=== PATIENT | male | born 1995 | race Caucasian/White ===

== ENCOUNTER 2017-05-20 13:48 | Emergency (ER) | payer OTHER, SELFPAY ==
[~2017-05-20] VITALS: Ht 182.9 cm; Wt 100.0 kg
[2017-05-20 13:49] VITALS: BP 145/80
[2017-05-20] MEDS ORDERED: LIDO1SOL7 MT (14:11)
[2017-05-20] MEDS ORDERED: PERC5TAB12 PO (15:13)
[2017-05-20] MEDS ORDERED: PENI500T PO (15:14)
[2017-05-20] MEDS ORDERED: PENICILLIN V POTASSIUM 500 MG TAB PO ONE (15:15)
[2017-05-20] MEDS ORDERED: PERCOCET 5MG/325MG TAB PO ONE (15:15)
== END 2017-05-20 15:29 | disposition home or self-care (01) ==
LOC: M ED 13:48
DX: K02.9 Dental caries, unspecified (principal); F17.200 Nicotine dependence, unspecified, uncomplicated; Z88.2 Allergy status to sulfonamides

== ENCOUNTER 2017-07-07 03:13 | Emergency (ER) | payer OTHER, SELFPAY ==
[~2017-07-07] VITALS: Ht 182.9 cm; Wt 100.0 kg
[~2017-07-07 03:13] MED LIST: LIDO1SOL7 MT; PENI500T PO; PERC5TAB12 PO
[2017-07-07 03:16] VITALS: BP 175/93
[2017-07-07] MEDS ORDERED: IBUP-1022 PO (06:24)
[2017-07-07] MEDS ORDERED: PERC5TAB12 PO (06:24)
[2017-07-07] MEDS ORDERED: CLEO300C2 PO (06:24)
[2017-07-07] MEDS ORDERED: ONDANSETRON 4 MG ORAL DISINTEGRATING TAB (S0181) PO ONE (06:30)
[2017-07-07] MEDS ORDERED: PERCOCET 5MG/325MG TAB PO ONE (06:30)
== END 2017-07-07 06:54 | disposition home or self-care (01) ==
LOC: M ED 03:13
DX: S02.5XXA Fracture of tooth (traumatic), initial encounter for closed fracture (principal); X58.XXXA Exposure to other specified factors, initial encounter; Y92.9 Unspecified place or not applicable; Y93.9 Activity, unspecified; Y99.9 Unspecified external cause status; K02.9 Dental caries, unspecified; K08.89 Other specified disorders of teeth and supporting structures; Z88.2 Allergy status to sulfonamides

== ENCOUNTER 2017-08-18 08:07 | Emergency (ER) | payer MEDICAID, SELFPAY ==
[~2017-08-18] VITALS: Ht 182.9 cm; Wt 104.5 kg
[~2017-08-18 08:07] MED LIST changes: +CLEO300C2 PO; +IBUP-1022 PO
[2017-08-18 08:08] VITALS: BP 136/76
[2017-08-18] MEDS ORDERED: VENTAER IN (08:17)
[2017-08-18] MEDS ORDERED: PRED10TA2 PO (09:19)
[2017-08-18] MEDS ORDERED: ALBU83IN INH (09:19)
[2017-08-18] MEDS ORDERED: IBUPROFEN 800 MG TAB PO ONE (09:30)
[2017-08-18] MEDS ORDERED: predniSONE 20 MG TAB PO ONE (09:30)
== END 2017-08-18 09:28 | disposition home or self-care (01) ==
LOC: M ED 08:07
DX: J45.901 Unspecified asthma with (acute) exacerbation (principal); J06.9 Acute upper respiratory infection, unspecified; F17.200 Nicotine dependence, unspecified, uncomplicated; Z88.2 Allergy status to sulfonamides

== ENCOUNTER 2017-08-30 15:50 | Emergency (ER) | payer MEDICAID, SELFPAY ==
[~2017-08-30] VITALS: Ht 182.9 cm; Wt 109.9 kg
[2017-08-30 15:50] VITALS: BP 140/78
[~2017-08-30 15:50] MED LIST changes: +ALBU83IN INH; +PRED10TA2 PO; +VENTAER IN
[2017-08-30] MEDS ORDERED: CLEO300C2 PO (17:19)
[2017-08-30] MEDS ORDERED: IBUP-1022 PO (17:19)
[2017-08-30] MEDS ORDERED: PERC5TAB12 PO (17:19)
== END 2017-08-30 17:26 | disposition home or self-care (01) ==
LOC: M ED 15:50
DX: K04.7 Periapical abscess without sinus (principal); K02.9 Dental caries, unspecified; K08.89 Other specified disorders of teeth and supporting structures; J45.909 Unspecified asthma, uncomplicated; Z88.2 Allergy status to sulfonamides

== ENCOUNTER 2017-09-15 07:35 | Emergency (ER) | payer MEDICAID ==
[2017-09-15] MEDS: IBUPROFEN 600 MG TAB PO (08:05)
== END 2017-09-15 08:07 | disposition home or self-care (01) ==
LOC: M ED 07:35
DX: K02.9 Dental caries, unspecified (principal); K08.89 Other specified disorders of teeth and supporting structures
CPT/HCPCS: 99282

== ENCOUNTER 2021-03-14 20:07 | Emergency (ER) | payer MEDICAID, OTHER ==
[~2021-03-14] VITALS: Ht 180.3 cm; Wt 107.9 kg
[~2021-03-14 20:07] MED LIST changes: -LIDO1SOL7 MT; +LIDO2SOL17 MT
[2021-03-14] MEDS ORDERED: DERMABOND TOPICAL SKIN ADHESIVE TOP ONE (21:45)
[2021-03-14] MEDS ORDERED: CEPH500C PO (21:49)
[2021-03-14] MEDS ORDERED: BOOSTRIX/ADACEL VACCINE (DIPHTH/PERTUSS/ACELL/TETANUS) 0.5ML SYR IM ONE (21:50)
[2021-03-14 22:06] VITALS: BP 121/67
== END 2021-03-14 22:15 | disposition home or self-care (01) ==
LOC: M ED 20:07
DX: S61.210A Laceration without foreign body of right index finger without damage to nail, initial encounter (principal); W26.0XXA Contact with knife, initial encounter; Y92.89 Other specified places as the place of occurrence of the external cause; Y93.G1 Activity, food preparation and clean up; Y99.0 Civilian activity done for income or pay; J45.909 Unspecified asthma, uncomplicated; F17.200 Nicotine dependence, unspecified, uncomplicated; Z88.2 Allergy status to sulfonamides

== ENCOUNTER 2021-09-08 10:21 | Emergency (ER) | payer OTHER, SELFPAY ==
[~2021-09-08] VITALS: Ht 182.9 cm; Wt 104.5 kg
[~2021-09-08 10:21] MED LIST changes: +CEPH500C PO
[2021-09-08 10:36] VITALS: BP 155/82
[2021-09-08] MEDS ORDERED: KETOROLAC 30 MG/ML 1ML VIAL IM ONE (11:50)
[2021-09-08 12:59] LABS: RSV AMPLIFICATION NEGATIVE (NEGATIVE)
== END 2021-09-08 14:06 | disposition home or self-care (01) ==
LOC: M ED 10:21
DX: U07.1 COVID-19 (principal); J45.909 Unspecified asthma, uncomplicated; Z88.2 Allergy status to sulfonamides
CPT/HCPCS: 87631; 96372; 99282; J1885

== ENCOUNTER 2021-11-10 09:39 | Emergency (ER) | payer OTHER, SELFPAY ==
[~2021-11-10] VITALS: Ht 182.9 cm; Wt 102.3 kg
[2021-11-10 11:19] VITALS: BP 148/81
== END 2021-11-10 11:23 | disposition home or self-care (01) ==
LOC: M ED 09:39
DX: S63.502A Unspecified sprain of left wrist, initial encounter (principal); W01.0XXA Fall on same level from slipping, tripping and stumbling without subsequent striking against object, initial encounter; F17.200 Nicotine dependence, unspecified, uncomplicated; Y92.009 Unspecified place in unspecified non-institutional (private) residence as the place of occurrence of the external cause; Y93.9 Activity, unspecified; Y99.9 Unspecified external cause status

== ENCOUNTER 2024-04-03 09:27 | Emergency (ER) | payer SELFPAY ==
[~2024-04-03] VITALS: Ht 180.3 cm; Wt 118.8 kg
[~2024-04-03 09:27] MED LIST changes: +ALBU2.5V10 INH; -ALBU83IN INH; +LIDO15SO8 MT; -LIDO2SOL17 MT
[2024-04-03] MEDS ORDERED: IBUP-1857 PO (09:41)
[2024-04-03 11:18] LABS: BASO % 0.7 % (0.0-1.0); EOS # 0.2 10^3/uL (0.0-0.5); EOS % 3.3 % (0.0-3.0); HEMATOCRIT 45.3 % (42.0-52.0); HEMOGLOBIN 15.4 g/dl (13.5-17.5); LYMPH # 1.8 10^3/uL (1.5-5.0); LYMPH % 29.3 % (24.0-44.0); MEAN CORPUSCULAR HEMOGLOBIN 29.6 pg (27.0-33.0); MEAN CORPUSCULAR VOLUME 87.1 fl (80.0-96.0); MONO # 0.4 10^3/uL (0.0-0.8); MONO % 6.8 % (2.0-8.0); NEUTROPHILS # 3.7 10^3/uL (1.5-8.5); NEUTROPHILS % 59.9 % (36.0-66.0); PLATELET COUNT, AUTOMATED 233 10^3/uL (150-450); WHITE BLOOD COUNT 6.2 10^3/uL (4.0-10.0)
[2024-04-03 11:34] LABS: INR 0.99; PROTHROMBIN TIME 12.8 SECONDS (12.5-14.5)
[2024-04-03 11:41] LABS: CK-MB VALUE MASS 2.5 NG/ML (<3.6); LIPASE 31 U/L (12-53)
[2024-04-03 11:43] LABS: ALBUMIN 4.1 G/DL (3.2-5.2); ALKALINE PHOSPHATASE 67 U/L (46-116); ALT/SGPT 25 U/L (7.0-40); AST/SGOT 15 U/L (<34); BILIRUBIN,DIRECT 0.1 MG/DL (<0.4); BILIRUBIN,TOTAL 0.5 MG/DL (0.3-1.2); BLOOD UREA NITROGEN 13 MG/DL (9-23); CALCIUM LEVEL 9.7 MG/DL (8.5-10.1); CARBON DIOXIDE LEVEL 28 MMOL/L (20-31); CHLORIDE LEVEL 107 MMOL/L (98-107); CPK CREATINE PHOSPHOKINASE 277 U/L (46-171); CREATININE FOR GFR 0.97 MG/DL (0.70-1.30); GLOMERULAR FILTRATION RATE > 60.0 (>60); GLUCOSE, FASTING 106 MG/DL (60-100); SODIUM LEVEL 139 MMOL/L (136-145); TOTAL PROTEIN 7.2 G/DL (5.7-8.2)
[2024-04-03 11:45] LABS: THYROID STIMULATING HORMONE 1.957 uIU/ML (0.55-4.78)
[2024-04-03] MEDS ORDERED: ISOVUE-370 76% 100ML VIAL As Ordered ONE (12:04)
[2024-04-03 12:32] LABS: AMPHETAMINES LEVEL URINE NEGATIVE (NEGATIVE); BARBITURATES URINE NEGATIVE (NEGATIVE); BENZODIAZEPINES URINE NEGATIVE (NEGATIVE); COCAINE METABOLITE URINE NEGATIVE (NEGATIVE); METHADONE URINE NEGATIVE (NEGATIVE); PHENCYCLIDINE URINE NEGATIVE (NEGATIVE)
[2024-04-03 12:33] LABS: CANNABINOIDS URINE POSITIVE (NEGATIVE); OPIATES URINE POSITIVE (NEGATIVE)
[2024-04-03 14:00] VITALS: BP 132/78
[2024-04-03 14:02] VITALS: TEMP 97.8; O2SAT 99
== END 2024-04-03 14:20 | disposition home or self-care (01) ==
LOC: M ED 09:27
DX: R07.9 Chest pain, unspecified (principal); R00.0 Tachycardia, unspecified; I45.81 Long QT syndrome; F17.210 Nicotine dependence, cigarettes, uncomplicated; Z88.2 Allergy status to sulfonamides; Z79.1 Long term (current) use of non-steroidal anti-inflammatories (NSAID)
CPT/HCPCS: 36415; 71045; 71275; 80048; 80076; 80307; 82550; 82553; 83690; 84443; 84484; 85025; 85610; 93005; 93041; 94760; 99285; Q9967

== ENCOUNTER 2025-01-02 19:28 | Emergency (ER) | payer SELFPAY ==
[~2025-01-02] VITALS: Ht 180.3 cm; Wt 126.5 kg
[~2025-01-02 19:28] MED LIST changes: +IBUP-1857 PO
[2025-01-02 19:30] VITALS: TEMP 96.4
[2025-01-02 20:58] LABS: BASO % 0.5 % (0.0-1.0); EOS # 0.1 10^3/uL (0.0-0.5); EOS % 0.6 % (0.0-3.0); HEMATOCRIT 43.1 % (42.0-52.0); HEMOGLOBIN 14.5 g/dl (13.5-17.5); LYMPH # 2.3 10^3/uL (1.5-5.0); LYMPH % 25.6 % (24.0-44.0); MEAN CORPUSCULAR HEMOGLOBIN 29.8 pg (27.0-33.0); MEAN CORPUSCULAR HGB CONC 33.6 g/dl (32.0-36.5); MEAN CORPUSCULAR VOLUME 88.5 fl (80.0-96.0); MONO # 0.5 10^3/uL (0.0-0.8); MONO % 5.2 % (2.0-8.0); PLATELET COUNT, AUTOMATED 241 10^3/uL (150-450); RED BLOOD COUNT 4.87 10^6/uL (4.30-6.10); WHITE BLOOD COUNT 8.9 10^3/uL (4.0-10.0)
[2025-01-02 21:14] LABS: INR 0.88; PARTIAL THROMBOPLASTIN TIME 25.7 SECONDS (24.8-34.2); PROTHROMBIN TIME 12.3 SECONDS (12.5-14.5)
[2025-01-02 21:27] LABS: BARBITURATES URINE NEGATIVE (NEGATIVE); COCAINE METABOLITE URINE NEGATIVE (NEGATIVE); METHADONE URINE NEGATIVE (NEGATIVE)
[2025-01-02 21:28] LABS: AMPHETAMINES LEVEL URINE NEGATIVE (NEGATIVE); BENZODIAZEPINES URINE NEGATIVE (NEGATIVE); CANNABINOIDS URINE NEGATIVE (NEGATIVE); OPIATES URINE NEGATIVE (NEGATIVE); PHENCYCLIDINE URINE NEGATIVE (NEGATIVE)
[2025-01-02 21:30] LABS: CK-MB VALUE MASS 1.7 NG/ML (<3.6)
[2025-01-02 21:31] LABS: BLOOD UREA NITROGEN 16 MG/DL (9-23); CALCIUM LEVEL 9.8 MG/DL (8.5-10.1); CARBON DIOXIDE LEVEL 27 MMOL/L (20-31); CHLORIDE LEVEL 105 MMOL/L (98-107); CREATININE FOR GFR 1.05 MG/DL (0.70-1.30); GLOMERULAR FILTRATION RATE > 90.0 (>60); GLUCOSE, FASTING 109 MG/DL (60-100); POTASSIUM SERUM 4.2 MMOL/L (3.5-5.1); SODIUM LEVEL 141 MMOL/L (136-145)
[2025-01-02 21:37] LABS: CPK CREATINE PHOSPHOKINASE 187 U/L (46-171)
[2025-01-02 21:39] LABS: D-DIMER QUANT < 0.27 ug/mL (<0.5)
[2025-01-02 22:22] LABS: CPK CREATINE PHOSPHOKINASE 163 U/L (46-171); MB/CK RELATIVE INDEX 0.61 (< OR =4)
[2025-01-02 22:45] VITALS: BP 148/83; O2SAT 96
== END 2025-01-02 23:09 | disposition home or self-care (01) ==
LOC: M ED 19:28
DX: R00.2 Palpitations (principal); R00.0 Tachycardia, unspecified; J45.909 Unspecified asthma, uncomplicated; F41.9 Anxiety disorder, unspecified; F17.290 Nicotine dependence, other tobacco product, uncomplicated; Z88.2 Allergy status to sulfonamides; Z79.1 Long term (current) use of non-steroidal anti-inflammatories (NSAID)